=== PATIENT | male | born 1935 | race Caucasian/White ===

== ENCOUNTER 2016-11-17 09:08 | Day surgery (SDC) | payer MEDICARE ==
[~2016-11-17 09:08] MED LIST: Lidocaine 1% with EPINEPHrine 1:100,000 50 ML MDV ONE
[2016-11-17] MEDS: Bupivacaine 0.5% 50 ML MDV ONE ×2 (09:34→11:11)
[2016-11-17] MEDS ORDERED: Lactated Ringers 1,000 ML IV SCH (09:45)
[2016-11-17] MEDS ORDERED: Propofol 200 MG/20 ML SDV ONE (10:20)
[2016-11-17] MEDS ORDERED: Midazolam 1 MG/ML 2 ML SDV ONE (10:20)
[2016-11-17] MEDS ORDERED: fentaNYL 100 MCG/2 ML SDV ONE (10:20)
[2016-11-17] MEDS ORDERED: Acetaminophen/HYDROcodone 325-5 MG Tab PO ONE (12:45)
[2016-11-17 12:50] VITALS: BP 153/93
--- NOTE | 2016-11-17 15:24 | OR ---
DATE OF PROCEDURE: 11/17/2016 PREOPERATIVE DIAGNOSIS: Subcutaneous 7 cm posterior neck mass. POSTOPERATIVE DIAGNOSIS: Subcutaneous 7 cm posterior neck mass consistent with a lipoma. PROCEDURE: Excision of subcutaneous 7 cm posterior neck mass. ANESTHESIA: IV anesthesia with monitored anesthesia care. INDICATIONS: This 81-year-old white male has a mass on his posterior neck. It measures about 7 cm x 4 cm. It is soft. This is consistent with a lipoma. He was referred to have it excised. He is taken to the operating room for excision of this. I counseled him for the procedure including risks and alternatives, and he gave his informed consent to proceed. DESCRIPTION OF PROCEDURE: The patient was placed prone on the operating room table. IV anesthesia was administered by the Anesthesia Service. His posterior neck and upper back were prepped and draped in the usual sterile fashion. Time-out was held. Lidocaine 1% with epinephrine in a 50:50 mix with 0.5% Marcaine was infiltrated over the mass. An oblique incision parallel to the long axis of the mass was made. This was carried deep sharply to the mass. The mass was then sharply excised and it is consistent with a lipoma. It was delivered from the field. Hemostasis was obtained with electrocautery. The incision was irrigated and suctioned dry. The deep tissue was closed with interrupted stitches of 3-0 Vicryl. The skin was approximated with a subcuticular stitch of 4-0 Vicryl. Dermabond was applied. The patient was then placed supine and brought from the operating room in good condition having tolerated the procedure well. Frederick Salamanca MD /[id number]
== END 2016-11-17 13:30 | disposition home or self-care (01) ==
LOC: JP.SDS 09:08
PROVIDERS: ATTEND Surgery
DX: D17.0 Benign lipomatous neoplasm of skin and subcutaneous tissue of head, face and neck (principal)
CPT/HCPCS: 21552; A9270; J2250; J2704; J3010; J7120; 88304